=== PATIENT | female | born 1990 | race Caucasian/White ===

== ENCOUNTER 2018-02-16 08:34 | Outpatient (CLI) | payer BC, OTHER | END 2018-02-16 08:35 | disposition home or self-care (01) | LOC: BICULT 08:34 | PROVIDERS: ATTEND Family Medicine | DX: Z34.02 Encounter for supervision of normal first pregnancy, second trimester (principal); Z3A.18 18 weeks gestation of pregnancy | CPT/HCPCS: 76805 ==

== ENCOUNTER 2018-06-07 10:54 | Inpatient (IN) | payer BC ==
--- NOTE | 2018-06-07 11:47 | PDOC.LDHP ---
Labor and Delivery H&P Chief complaint: other (PIH workup) HPI: 27 y/o G1 at 34w3d, patient of Dr. Carleen Haywood, presents from clinic for PIH workup. Patient reports headache, swelling, with weight gain of 15lbs in 1 week , and mild range BPs in clinic today. Denies VB, LOF, ctx, or decreased FM. ROS neg for HEENT, cv, pulm, gi, gu, neuro, psych, skin, musculoskeletal or constitutional symptoms other than mentioned above. OB History Details: First Current complications: none Current medications: pre- vitamins Previous surgical history: none Allergies/Adverse Reactions: Allergies Allergy/AdvReac Type Severity Reaction Status Date / Time No Known Allergies Allergy Verified 05/11/13 17:10 Social history: none - Physical Exam Vital signs reviewed and normal: yes General: NAD, resting Lungs: nonlabored breathing Abdomen: gravid Extremeties: pitting edema (3+ to knees) FHT: category 1 (120s, mod variability, + accels, no decels) [place] contractions every: none - Assessment 27 y/o G1 at 34w3d with elevated BPs, weight gain, headache. status reassuring with reactive NST. Urine protein/creatinine pending. - Plan -: Discussed with Dr. Haywood. Admit for further evaluation. Will follow up urine labs. Continuous monitoring at this time. Celestone ordered.
[2018-06-07 12:06] LABS: #Eosinphils 0.1 thou/uL (0.0-0.7); #Lymphocytes 1.6 thou/uL (1.20-3.40); #Monocytes 0.5 thou/uL (0.11-0.59); #Neutrophils 7.5 thou/uL (1.40-6.50); %Basophils 0.1 % (0.0-1.0); %Eosinophils 1.1 % (0.0-10.0); %Lymphocytes 16.1 % (21.0-51.0); %Monocytes 5.4 % (0.0-10.0); %Neutrophils 77.3 % (42.0-75.0); Hemoglobin 11.7 g/dL (12.0-16.0); Mean Corpuscular HGB CONC 34.8 g/dL (32.0-36.0); Mean Corpuscular Hemoglobin 31.2 pg (27.0-31.0); Mean Corpuscular Volume 89.8 fL (78.0-98.0); Mean Platelet Volume 7.2 fL (7.4-10.4); Platelet Count 253 thou/uL (130-400); RBC Distribution Width 14.2 % (11.5-14.5); Red Blood Cell (RBC) Count 3.75 mill/uL (4.20-5.40); White Blood Cell (WBC) Count 9.7 thou/uL (4.8-10.8)
[2018-06-07 12:18] VITALS: BMI 30.2
[2018-06-07 12:23] LABS: ALT (SGPT) 11 U/L (8-55); AST (SGOT) 15 U/L (5-34); Albumin 3.3 g/dL (3.5-5.0); Alkaline Phosphatase 158 U/L (40-150); Anion Gap 13 mmol/L (10-20); BUN (Urea Nitrogen) 8 mg/dL (7.0-18.7); Bilirubin, Total 0.2 mg/dL (0.2-1.2); Calc. Creatinine Clearance 142 mL/min (70-130); Calcium 8.9 mg/dL (7.8-10.44); Carbon Dioxide 22 mmol/L (22-29); Chloride 105 mmol/L (98-107); Estimated GFR-MDRD Greater than 90; Globulin 2.8 g/dL (2.4-3.5); Glucose 66 mg/dL (70-105); Potassium 3.8 mmol/L (3.5-5.1); Protein, Total 6.1 g/dL (6.0-8.3); Sodium 136 mmol/L (136-145)
[2018-06-07] MEDS ORDERED: Ondansetron HCl/PF 4 MG/2 ML Vial IVP PRN (12:41)
[2018-06-07] MEDS ORDERED: Promethazine HCl 25 MG/ML VIAL IM PRN (12:41)
[2018-06-07] MEDS ORDERED: Acetaminophen 500 MG TAB PO PRN (12:41)
[2018-06-07] MEDS ORDERED: Butorphanol Tartrate 1 MG/ML VIAL SLOW IVP PRN (12:41)
[2018-06-07] MEDS ORDERED: Zolpidem Tartrate 5 MG TAB PO PRN (12:41)
[2018-06-07] MEDS ORDERED: Lactated Ringer's 1,000 ML IV SCH (12:45)
[2018-06-07 13:01] LABS: Creatinine, Urine 31.72 mg/dL (47-110); Protein, Urine Random Quant Less than 10 mg/dL (1-14)
[2018-06-07 13:28] LABS: Syphilis Antibody Nonreactive (Nonreactive); Syphilis Antibody Index 0.03 S/CO (<1.00 Non-Reactive)
[2018-06-07 13:29] LABS: HBSAg Index 0.27 S/CO (0-0.99); Hep B Surf Ag Non-Reactive S/CO (NonReactive)
[2018-06-07] MEDS: Betamet Acet/Betamet Na Ph 30 MG/5 ML VIAL IM SCH (19:26)
[2018-06-08 08:26] VITALS: TEMP 98.5
[2018-06-08 16:05] LABS: Collection Duration 24 hrs
[2018-06-08 16:06] LABS: Urine Total Volume 2575 mL (600-1600)
[2018-06-08 16:33] LABS: Protein, Urine Less than 10 mg/dL (1-14)
[2018-06-08] MEDS: Betamet Acet/Betamet Na Ph 30 MG/5 ML VIAL IM SCH (19:36)
--- NOTE | 2018-06-09 04:19 | DIS ---
DATE OF ADMISSION: 06/07/2018 DATE OF DISCHARGE: 06/08/2018 DISCHARGE DIAGNOSES: 1. A 38-week 4-day intrauterine . 2. Gestational hypertension. HOSPITAL COURSE: Massiel is a 27-year-old, G1, patient at 34 weeks and 3 days who presented to o [facility] for her regular scheduled appointment complaining of headache and marked edema of her legs, fac e, and hands and a headache. 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 In the office noted that her blood pressure was 138/105. She had 2+ pitting edema to her mid t ib/fib area as well as edema of her hands and face and 1+ protein in her urine. She was subsequently recommended to be evaluated in Labor and Delivery for a PIH workup. She was evaluated by Dr. Temitope Daniel placed on Labor and Delivery for observation and serial blood pressures, which did markedly i mprove to the 130s/80s range with occasional systolic in the 140s. Laboratory studies were obtained, which revealed a white count 9.7, hemoglobin 11.7, platelet count 253. Chemistry is with normal jason ctrolytes and normal hepatic enzymes. Urine protein was obtained, which was less than 10 on a random dip and patient was subsequently felt that we should obtain a 24-hour urine. She was given IM betam ethasone steroids for lung maturation of the baby. She continued to do well. The steroids were repe ated at 24 hours for her second dose. A 24-hour urine had been completed and patient continued to do well, subsequently felt she could be discharged home. Recommendations to discontinue her work sched ule at this time. We will follow up closely in the office, most likely we will need delivery prior t o EDC due to gestational hypertension. Precautions have been given to the patient.
== END 2018-06-08 20:19 | disposition home or self-care (01) | DRG 782 ==
LOC: L&D/OP 10:54 → L&D 13:12
PROVIDERS: ADMIT Family Medicine; ATTEND Family Medicine
DX: O13.3 Gestational [pregnancy-induced] hypertension without significant proteinuria, third trimester (principal); Z3A.38 38 weeks gestation of pregnancy
CPT/HCPCS: 36415; 80053; 82570; 84156; 85025; 86780; 86850; 86900; 86901; 87340; J0702

== ENCOUNTER 2018-06-20 14:52 | Inpatient (IN) | payer BC ==
[2018-06-20] MEDS ORDERED: Labetalol HCl 100 MG/20 ML VIAL SLOW IVP SCH (15:30)
[2018-06-20] MEDS: Lactated Ringer's 1,000 ML IV SCH ×3 (15:48→23:38)
[2018-06-20 16:06] LABS: Hemoglobin 13.5 g/dL (12.0-16.0); Mean Corpuscular HGB CONC 34.9 g/dL (32.0-36.0); Mean Corpuscular Hemoglobin 31.6 pg (27.0-31.0); Mean Corpuscular Volume 90.6 fL (78.0-98.0); Mean Platelet Volume 8.2 fL (7.4-10.4); Platelet Count 267 thou/uL (130-400); RBC Distribution Width 14.4 % (11.5-14.5); Red Blood Cell (RBC) Count 4.26 mill/uL (4.20-5.40)
[2018-06-20 16:14] VITALS: BMI 28.3
[2018-06-20 16:25] LABS: ALT (SGPT) 13 U/L (8-55); AST (SGOT) 14 U/L (5-34); Albumin 3.7 g/dL (3.5-5.0); Alkaline Phosphatase 196 U/L (40-150); Anion Gap 17 mmol/L (10-20); BUN (Urea Nitrogen) 8 mg/dL (7.0-18.7); Bilirubin, Total 0.3 mg/dL (0.2-1.2); Calc. Creatinine Clearance 131 mL/min (70-130); Calcium 9.8 mg/dL (7.8-10.44); Carbon Dioxide 20 mmol/L (22-29); Chloride 101 mmol/L (98-107); Estimated GFR-MDRD Greater than 90; Globulin 3.1 g/dL (2.4-3.5); Glucose 71 mg/dL (70-105); LDH 175 U/L (125-220); Potassium 4.2 mmol/L (3.5-5.1); Protein, Total 6.8 g/dL (6.0-8.3); Sodium 134 mmol/L (136-145); Uric Acid 4.4 mg/dL (2.6-6.0)
[2018-06-20] MEDS ORDERED: NS / Oxytocin 40 units/1000ml 1,000 ML IV PRN (16:32)
[2018-06-20] MEDS ORDERED: Ibuprofen 800 MG TAB PO PRN (16:32)
[2018-06-20] MEDS ORDERED: Lidocaine 1% (PF) 30 ML VIAL SC PRN (16:32)
[2018-06-20] MEDS ORDERED: Ondansetron HCl/PF 4 MG/2 ML Vial IVP PRN ×2 (16:32→20:15)
[2018-06-20] MEDS ORDERED: HYDROcodone/Acetaminophen 5/325 mg Tablet PO PRN ×2 (16:32)
[2018-06-20] MEDS ORDERED: Misoprostol 200 MCG TAB PR PRN (16:32)
[2018-06-20] MEDS ORDERED: Misoprostol 100 MCG TAB VAG SCH (16:45)
[2018-06-20] MEDS ORDERED: NS w/ Oxytocin 10 units 500 ML IV SCH (17:30)
[2018-06-20 17:49] LABS: Syphilis Antibody Nonreactive (Nonreactive); Syphilis Antibody Index 0.03 S/CO (<1.00 Non-Reactive)
[2018-06-20 17:54] LABS: HBSAg Index 0.18 S/CO (0-0.99); Hep B Surf Ag Non-Reactive S/CO (NonReactive)
[2018-06-20] MEDS ORDERED: NS w/ Oxytocin 10 units 500 ML ONE (17:59)
[2018-06-20] MEDS ORDERED: DISCONTINUE ALL PREVIOUS NARCOTICS FS SCH (18:45)
[2018-06-20] MEDS: Bupivacaine 0.5% 20 ML, fentaNYL Citrate/PF 400 MCG in Sodium Chloride 0.9% 72 ML EPIDURAL SCH (19:43)
[2018-06-20] MEDS ORDERED: Acetaminophen 325 MG TAB PO PRN (20:15)
[2018-06-20] MEDS ORDERED: Naloxone HCl 0.4 mg/ml Vial IVP PRN ×2 (20:15)
[2018-06-20] MEDS ORDERED: diphenhydrAMINE 50 MG/ML VIAL IVP PRN (20:15)
[2018-06-20] MEDS ORDERED: Promethazine HCl 25 MG/ML VIAL IM PRN (20:15)
[2018-06-20] MEDS ORDERED: Communication Order-Pharmacy FS SCH (20:15)
[2018-06-20] MEDS ORDERED: ePHEDrine/0.9% NaCl/PF SYRINGE 50 mg/10 ml SLOW IVP PRN (20:15)
[2018-06-20] MEDS ORDERED: fentaNYL Citrate/PF 400 MCG, Bupivacaine 0.5% 20 ML in Sodium Chloride 0.9% 72 ML EPIDURAL SCH (20:15)
[2018-06-20] MEDS ORDERED: Lactated Ringer's 500 ML IV PRN (20:15)
[2018-06-20] MEDS ORDERED: Eucerin (Mineral Oil/Petrolatum,White) 30 gm Jar TOP PRN (20:15)
[2018-06-21] MEDS: Bupivacaine 0.5% 20 ML, fentaNYL Citrate/PF 400 MCG in Sodium Chloride 0.9% 72 ML EPIDURAL SCH (02:12)
[2018-06-21] MEDS ORDERED: Docusate Calcium (SURFAK) 240 MG CAP ONE (09:47)
[2018-06-21] MEDS ORDERED: Prenatal Vitamin 1 TAB ONE (09:47)
[2018-06-21] MEDS ORDERED: diphenhydrAMINE 25 MG CAP PO PRN (10:30)
[2018-06-21] MEDS ORDERED: Milk Of Magnesia 30 ML UDCUP PO PRN (10:30)
[2018-06-21] MEDS ORDERED: Bisacodyl 10 MG SUPP PR PRN (10:30)
[2018-06-21] MEDS ORDERED: Ondansetron HCl/PF 4 MG/2 ML Vial IVP PRN (10:30)
[2018-06-21] MEDS ORDERED: Preparation H Ointment 28 GM TUBE PR PRN (10:30)
[2018-06-21] MEDS ORDERED: Benzocaine/Menthol 20-0.5% 60 ML CAN TOP PRN (10:30)
[2018-06-21] MEDS ORDERED: traMADol HCl 50 MG TAB PO PRN (10:30)
[2018-06-21] MEDS ORDERED: HYDROcodone/Acetaminophen 5/325 mg Tablet PO PRN (10:30)
[2018-06-21] MEDS ORDERED: Acetaminophen/Codeine 30-300mg Tablet PO PRN (10:30)
[2018-06-21] MEDS ORDERED: NS / Oxytocin 40 units/1000ml 1,000 ML IV SCH (10:30)
[2018-06-21] MEDS: Ibuprofen 800 MG TAB PO SCH ×2 (14:33→21:42)
[2018-06-21] MEDS ORDERED: Bupivacaine 0.25% HCL 30 ML VIAL ONE (21:00)
[2018-06-21] MEDS: Docusate Calcium (SURFAK) 240 MG CAP PO SCH (21:42)
[2018-06-22] MEDS: Levothyroxine Sodium 100 MCG TAB PO SCH (06:04)
[2018-06-22] MEDS: Ibuprofen 800 MG TAB PO SCH ×3 (06:04→21:40)
[2018-06-22 07:37] LABS: Hemoglobin 9.9 g/dL (12.0-16.0); Mean Corpuscular HGB CONC 33.9 g/dL (32.0-36.0); Mean Corpuscular Hemoglobin 31.5 pg (27.0-31.0); Mean Corpuscular Volume 92.9 fL (78.0-98.0); Mean Platelet Volume 7.5 fL (7.4-10.4); Platelet Count 173 thou/uL (130-400); RBC Distribution Width 14.9 % (11.5-14.5); Red Blood Cell (RBC) Count 3.13 mill/uL (4.20-5.40); White Blood Cell (WBC) Count 8.7 thou/uL (4.8-10.8)
[2018-06-22] MEDS: Prenatal Vitamin 1 TAB PO SCH (08:47)
[2018-06-22] MEDS: Docusate Calcium (SURFAK) 240 MG CAP PO SCH ×2 (08:48→21:40)
[2018-06-23] MEDS ORDERED: Levothyroxine Sodium 100 MCG TAB PO SCH (06:00)
[2018-06-23] MEDS: Ibuprofen 800 MG TAB PO SCH (06:07)
[2018-06-23 08:01] VITALS: BP 134/97; TEMP 97.8
[2018-06-23] MEDS: Docusate Calcium (SURFAK) 240 MG CAP PO SCH (09:34)
[2018-06-23] MEDS: Prenatal Vitamin 1 TAB PO SCH (09:34)
== END 2018-06-23 11:14 | disposition home or self-care (01) | DRG 775 ==
LOC: L&D/OP 14:52 → L&D 15:47 → 3SW 06-21 10:37
PROVIDERS: ADMIT Family Medicine; ATTEND Family Medicine
PROC: 10E0XZZ Delivery of Products of Conception, External Approach (ICD-10-PCS; principal; 2018-06-21)
PROC: 0KQM0ZZ Repair Perineum Muscle, Open Approach (ICD-10-PCS; 2018-06-21)
DX: O60.14X0 Preterm labor third trimester with preterm delivery third trimester, not applicable or unspecified (principal); Z3A.36 36 weeks gestation of pregnancy; Z37.0 Single live birth; O69.1XX0 Labor and delivery complicated by cord around neck, with compression, not applicable or unspecified; O13.3 Gestational [pregnancy-induced] hypertension without significant proteinuria, third trimester; O99.013 Anemia complicating pregnancy, third trimester; O99.343 Other mental disorders complicating pregnancy, third trimester; O99.283 Endocrine, nutritional and metabolic diseases complicating pregnancy, third trimester; E03.9 Hypothyroidism, unspecified; O70.1 Second degree perineal laceration during delivery
CPT/HCPCS: 36415; 51702; 80053; 81003; 82570; 83615; 84156; 84550; 85027; 85461; 86780; 86850; 86870; 86900; 86901; 87340; 90384; 96372; 99285; C1726; J2001; J2405; J3010; J3490; J7050; S0020